=== PATIENT | female | born 1970 | race Caucasian/White ===

== ENCOUNTER 2016-07-19 15:12 | Emergency (ER) | payer MEDICAID ==
[2016-07-19] MEDS ORDERED: LORAZEPAM 2 MG/ML VIAL ONE ×4 (16:03→18:53)
[2016-07-19] MEDS ORDERED: KEPPRA 500 MG in SOD CHLOR 0.9% INJ 100 ML IV ONE (17:55)
== END 2016-07-19 19:20 | disposition home or self-care (01) ==
LOC: ER 15:12
DX: R56.9 Unspecified convulsions (principal); S09.90XA Unspecified injury of head, initial encounter
CPT/HCPCS: 36415; 70450; 80053; 80177; 80307; 80320; 81001; 84703; 85025; 96365; 96375; 96376

== ENCOUNTER 2016-08-05 18:34 | Emergency (ER) | payer MEDICAID ==
[2016-08-05] MEDS ORDERED: DIAZEPAM 10 MG/2 ML SYR ONE (19:41)
== END 2016-08-06 00:27 | disposition home or self-care (01) ==
LOC: ER 18:34
DX: R56.9 Unspecified convulsions (principal)
CPT/HCPCS: 36415; 80053; 81001; 82947; 85025; 87088; 96374